=== PATIENT | male | born 1995 | race Caucasian/White ===

== ENCOUNTER 2016-08-07 19:41 | Observation (INO) | payer OTHER ==
[2016-08-07] MEDS ORDERED: fentaNYL 100 MCG/2 ML INJ IVP ONE ×2 (20:02→20:50)
--- NOTE | 2016-08-07 20:05 | EDPHY ---
H & P Stated Complaint: states fall into glass on floor lac to r palm and l elbow Time Seen by Provider: 08/07/16 19:49 HPI/ROS: CHIEF COMPLAINT: Laceration to left elbow and right hand HISTORY OF PRESENT ILLNESS: 20-year-old male with up-to-date tetanus arrives via ambulance, states that he was drinking alcohol fell onto glass and ceramic sustaining laceration to his right thenar eminence and left elbow. Positive foreign body sensation. No paresthesia. No head injury. No proximal distal pain or injury. No chest pain or injury. No dyspnea. Last oral intake was last evening REVIEW OF SYSTEMS: A ten point review of systems was performed and is negative with the exception of the items mentioned in the HPI PAST MEDICAL/SURGICAL HISTORY: no anticoagulant use, no relevant medical/ surgical history SOCIAL HISTORY: positive alcohol use PHYSICAL EXAM 1) GENERAL: Well-developed, well-nourished, alert and oriented. Appears to be in no acute distress. Answering questions appropriately. 2) HEAD: Normocephalic, atraumatic 3) HEENT: Pupils equal, round, reactive to light bilaterally. 4) NECK: Posterior cervical spine is nontender, no stepoff, no effusion. Full range of motion which does not elicit any midline cervical spine pain, no posterior midline tenderness, no step-off. 5) LUNGS: Clear to auscultation bilaterally, no wheezes, no rhonchi, no retractions. No obvious signs of trauma. No chest wall pain. No flaring, no grunting. Moving symmetrically. No crepitus. 6) HEART: Regular rate and rhythm, 7) ABDOMEN: No guarding, no rebound, no focal tenderness, no peritoneal signs, no signs of trauma, no ecchymosis 8) MUSCULOSKELETAL: Left upper extremity: Dorsal elbow 6 cm well-demarcated laceration with visible and palpable fragments of ceramic Right upper extremity: Thenar eminence laceration measuring 4 cm Moving all extremities, no focal areas of tenderness, no obvious trauma. 9) BACK: No midline vertebral tenderness, no fluctuance, no step-off, no obvious trauma, no visual or palpable abnormality. 10) SKIN: laceration left elbow and right hand DIFFERENTIAL DIAGNOSIS: [in no particular include but limited to open fracture, laceration, joint capsule disruption - Personal History Current Tetanus/Diphtheria Vaccine: Yes Current Tetanus Diphtheria and Acellular Pertussis (TDAP): Yes - Medical/Surgical History Hx Asthma: No Hx Chronic Respiratory Disease: No Hx Diabetes: No Hx Cardiac Disease: No Hx Renal Disease: No Hx Cirrhosis: No Hx Alcoholism: No Hx HIV/AIDS: No Hx Splenectomy or Spleen Trauma: No Other PMH: DENIES - Social History Smoking Status: Current every day smoker Constitutional: Initial Vital Signs Temperature (C) 36.9 C 08/07/16 19:45 Heart Rate 101 H 08/07/16 19:45 Respiratory Rate 18 08/07/16 19:45 Blood Pressure 126/89 H 08/07/16 19:45 O2 Sat (%) 96 08/07/16 19:45 O2 Delivery Mode Nasal Cannula O2 (L/minute) 2 Allergies/Adverse Reactions: No Known Allergies Allergy (Unverified 01/25/15 17:15) Home Medications: Medication Instructions Recorded NK [No Known Home Meds] 08/07/16 Medical Decision Making - Diagnostics Imagin. Left Elbow, 3 views History: Laceration after fall onto glass Findings: There is lateral and intra-articular gas. There is a large dorsal laceration with multiple glass fragments seen in and around the olecranon, associated with a deep laceration. No fracture is identified. Impression: 1. The laceration communicates with the elbow joint. 2. Multiple glass fragments are present dorsally, in the region of the olecranon. 2. Right Hand, Three Views History: Pain post trauma. Laceration first metacarpal. Fall onto glass. Findings: No radiopaque glass is identified. There is soft tissue swelling along the palmar aspect of the first metacarpal and distal carpus. No soft tissue gas, fracture or dislocation is identified. Impression: Soft tissue swelling without radiopaque glass. Dictated By: Devin Bhatia MD Images reviewed by myself ED Course/Re-evaluation: 8:55 p.m.: Phone consultation with Dr. Elian Torres regarding the right hand and left elbow laceration which show multiple pieces of glass, laceration which communicates with the elbow joint. On exam this is a complex deep laceration that I think would be best served by OR washout and closure. Dr. Torres is agreeable with this and will take patient to the OR tonight. Discussed case with Dr Haas in ER> - Data Points Laboratory Results: Laboratory Results 08/07/16 20:00 08/07/16 20:00 08/07/16 08/07/16 08/07/16 20:00 20:00 20:00 WBC 10.17 10^3/uL H 10^3/uL (3.80-9.50) RBC 4.94 10^6/uL 10^6/uL (4.40-6.38) Hgb 16.1 g/dL g/dL (13.7-17.5) Hct 45.4 % % (40.0-51.0) MCV 91.9 fL fL (81.5-99.8) MCH 32.6 pg pg (27.9-34.1) MCHC 35.5 g/dL g/dL (32.4-36.7) RDW 12.2 % % (11.5-15.2) Plt Count 244 10^3/uL 10^3/uL (150-400) MPV 11.2 fL fL (8.7-11.7) Neut % (Auto) 62.5 % % (39.3-74.2) Lymph % (Auto) 27.6 % % (15.0-45.0) [place] % (Auto) 7.9 % % (4.5-13.0) Eos % (Auto) 0.9 % % (0.6-7.6) Baso % (Auto) 0.8 % % (0.3-1.7) Nucleat RBC Rel Count 0.0 % % (0.0-0.2) Absolute Neuts (auto) 6.36 10^3/uL 10^3/uL (1.70-6.50) Absolute Lymphs (auto) 2.81 10^3/uL 10^3/uL (1.00-3.00) Absolute Monos (auto) 0.80 10^3/uL 10^3/uL (0.30-0.80) Absolute Eos (auto) 0.09 10^3/uL 10^3/uL (0.03-0.40) Absolute Basos (auto) 0.08 10^3/uL 10^3/uL (0.02-0.10) Absolute Nucleated RBC 0.00 10^3/uL 10^3/uL (0-0.01) Immature Gran % 0.3 % % (0.0-1.1) Immature Gran # 0.03 10^3/uL 10^3/uL (0.00-0.10) PT 13.3 SEC SEC (12.0-15.0) INR 1.02 (0.83-1.16) APTT 26.8 SEC SEC (23.0-38.0) Sodium 142 mEq/L mEq/L (134-144) Potassium 3.8 mEq/L mEq/L (3.5-5.2) Chloride 104 mEq/L mEq/L (97-110) Carbon Dioxide 21 mEq/l L mEq/l (22-31) Anion Gap 17 mEq/L H mEq/L (8-16) BUN 12 mg/dL mg/dL (7-23) Creatinine 1.1 mg/dL mg/dL (0.7-1.3) Estimated GFR > 60 Glucose 102 mg/dL H mg/dL (70-100) Calcium 9.6 mg/dL mg/dL (8.5-10.4) Ethyl Alcohol 90 mg/dL H mg/dL (0-10) Medications Given: Discontinued Medications Fentanyl (Sublimaze) 50 mcg IVP EDNOW ONE Stop: 08/07/16 20:03 Last Admin: 08/07/16 20:15 Dose: 50 mcg Fentanyl (Sublimaze) 100 mcg IVP EDNOW ONE Stop: 08/07/16 20:51 Last Admin: 08/07/16 20:59 Dose: 100 mcg Cefazolin Sodium/Dextrose (Ancef 1 Gm (Premix)) 50 mls @ 200 mls/hr IV EDNOW ONE PRN Reason: Protocol Stop: 08/07/16 20:16 Last Admin: 08/07/16 20:13 Dose: 50 mls Departure - Departure Disposition: To OP Cath/Surgery Clinical Impression: Complex left elbow laceration, Complex right thenar eminence laceration Condition: Fair
[2016-08-07 21:05] LABS: % IMMATURE GRANULYOCYTES 0.3 % (0.0-1.1); ABSOLUTE IMMATURE GRANULOCYTES 0.03 10^3/uL (0.00-0.10); ADD DIFF? NO; ADD MORPH? NO; ADD SCAN? NO; ATYPICAL LYMPHOCYTE FLAG 30 (0-99); FRAGMENT RBC FLAG 0 (0-99); HEMATOCRIT 45.4 % (40.0-51.0); HEMOGLOBIN 16.1 g/dL (13.7-17.5); LEFT SHIFT FLG 0 (0-99); LIPEMIA HEMOLYSIS FLAG 90 (0-99); MEAN CELL HEMOGLOBIN 32.6 pg (27.9-34.1); MEAN CELL HEMOGLOBIN CONCENTR. 35.5 g/dL (32.4-36.7); MEAN CELL VOLUME 91.9 fL (81.5-99.8); MEAN PLATELET VOLUME 11.2 fL (8.7-11.7); PLATELET CLUMPS FLAG 20 (0-99); PLATELET COUNT 244 10^3/uL (150-400); RED BLOOD CELL COUNT 4.94 10^6/uL (4.40-6.38); RED CELL DISTRIBUTION WIDTH 12.2 % (11.5-15.2)
[2016-08-07 21:10] LABS: INR 1.02 (0.83-1.16); PROTIME(PATIENT) 13.3 SEC (12.0-15.0)
[2016-08-07 21:11] LABS: APTT 26.8 SEC (23.0-38.0)
[2016-08-07 21:18] LABS: ANION GAP 17 mEq/L (8-16); CALCIUM 9.6 mg/dL (8.5-10.4); CARBON DIOXIDE 21 mEq/l (22-31); CHLORIDE 104 mEq/L (97-110); CREATININE 1.1 mg/dL (0.7-1.3); ETHANOL SERUM 90 mg/dL (0-10); GLOMERULAR FILTRATION RATE > 60; GLUCOSE 102 mg/dL (70-100); POTASSIUM 3.8 mEq/L (3.5-5.2); SODIUM 142 mEq/L (134-144)
--- NOTE | 2016-08-07 21:41 | SOAPPROG ---
TINY Progress Note Assessment/Plan: Assessment: 20 year old male who presents to the ER after falling onto glass. He sustained left elbow laceration with communication to the joint as well as a laceration of the palmar aspect of the right hand. PE: NAD A&O x3 LUE: Dorsal elbow 6 cm well-demarcated laceration RUE:Thenar eminence laceration measuring 4 cm Plan: Risks, benefits, and alternatives to operative vs nonoperative management were discussed with patient. Patient would like to proceed with irrigation and debridement of the left elbow and right hand. Patient will be taken to the OR for irrigation and debridement of the left elbow and right hand. 08/07/16 21:34 Objective: Vital Signs Temp Pulse Resp BP Pulse Ox 36.9 C 84 14 112/77 95 08/07/16 19:45 08/07/16 21:15 08/07/16 21:15 08/07/16 21:15 08/07/16 21:15 PT 13.3 SEC (12.0-15.0) 08/07/16 20:00 INR 1.02 (0.83-1.16) 08/07/16 20:00 - Pending Discharge Pending Discharge Within 24 Hours: Yes Pending Discharge Within 48 Hours: Yes Pending Discharge Date: 08/09/16 Pending Discharge Time: 11:00 ICD10 Worksheet Patient Problems: Problems Problem Status Onset Elbow laceration Acute Elbow laceration Acute - ICD10 Problem Qualifiers (1) Elbow laceration Qualifiers: Encounter type: E Laterality: L (2) Elbow laceration Qualifiers: Encounter type: E Laterality: L
[2016-08-07] MEDS ORDERED: CEFAZOLIN 2 GM/DEXTROSE/100 ML BAG IV ONE (21:49)
[2016-08-07] MEDS ORDERED: LIDOCAINE 2% JELLY 5 ML TUBE ONE (21:56)
[2016-08-07] MEDS ORDERED: ONDANSETRON 4 MG/2 ML VIAL ONE (21:56)
[2016-08-07] MEDS ORDERED: fentaNYL 250 MCG/5 ML INJ ONE (21:56)
[2016-08-07] MEDS ORDERED: DEXAMETHASONE 4 MG/ML VIAL ONE ×2 (21:56)
[2016-08-07] MEDS ORDERED: PROPOFOL 200 MG/20 ML VIAL ONE ×2 (21:56→22:05)
--- NOTE | 2016-08-08 00:20 | SOAPPROG ---
SOAP Progress Note Assessment/Plan: Assessment: 20 year old male who presents to the ER after falling onto glass. He sustained left elbow laceration with communication to the joint as well as a laceration of the palmar aspect of the right hand. He is POD#0 s/p left elbow irrigation and debridement, right hand irrigation and debridement. PE: NAD A&O x3 LUE: Dressing C/D/I RUE:Dressing C/D/I Plan: - 2g IV ancef q8h for 2 doses. First dose to be given at 0400 on 08/08. - WBAT RUE. WBAT LUE - Keep dressings clean and dry - Patient may be discharged tomorrow after 2nd dose of Ancef. Pt has prescriptions for pain medication and antibiotics in his chart. Pt is to follow up in our office in two weeks for repeat evaluation. 08/07/16 21:34 08/08/16 00:16 Objective: Vital Signs Temp Pulse Resp BP Pulse Ox 36.9 C 84 14 112/77 95 08/07/16 19:45 08/07/16 21:15 08/07/16 21:15 08/07/16 21:15 08/07/16 21:15 PT 13.3 SEC (12.0-15.0) 08/07/16 20:00 INR 1.02 (0.83-1.16) 08/07/16 20:00 ICD10 Worksheet Patient Problems: Problems Problem Status Onset Elbow laceration Acute - ICD10 Problem Qualifiers (1) Elbow laceration Qualifiers: Encounter type: E Laterality: L
[2016-08-08] MEDS ORDERED: ONDANSETRON 4 MG/2 ML VIAL IVP PRN (00:23)
[2016-08-08] MEDS ORDERED: fentaNYL 100 MCG/2 ML INJ ONE (00:25)
[2016-08-08] MEDS ORDERED: HYDROmorphONE/DILAUDID 1 MG/ML SYR ONE (00:26)
[2016-08-08] MEDS ORDERED: D5W 1/2 NS W/ 20 KCl/L 1,000 ML IV SCH (00:30)
--- NOTE | 2016-08-08 00:35 | POSTOPPROG ---
Post Op Note Date of Operation: 08/08/16 Surgeon: Elian Torres Master In Chancery: Lili Cabrera PA-C Anesthesiologist: Sandra Pre-op Diagnosis: left elbow laceration, right hand laceration Post-op Diagnosis: left elbow laceration, right hand laceration Procedure: Irrigation and debridement left elbow, irrigation and debridement right jones Inf/Abcess present in the surg proc area at time of surgery?: No EBL: Minimal
[2016-08-08] MEDS ORDERED: HYDROmorphONE/DILAUDID 1 MG/ML SYR IVP PRN (01:26)
[2016-08-08] MEDS: OXYCODONE/APAP 5/325 TAB PO PRN ×4 (01:38→16:42)
--- NOTE | 2016-08-08 01:58 | GCON ---
[f rep st] CONSULTATION Patient Name: KELBY NIETO N-Number: [id number] Date of : [birth year] Patient Status: Observation Attending Doctor: Elian Torres MD Date of service: 08/07/16 CPT codes: CPT code 66662 ER visit requiring admission or initial inpatient visit, level four Modifier 57 Decision for surgery CHIEF COMPLAINT: Left elbow laceration, right hand laceration HISTORY OF PRESENT ILLNESS: This is a very pleasant 20 year old male with a significant history for left posterior elbow laceration with evidence of intra-articular penetration and a right thenar eminence laceration after a fall through a window onto ceramic material earlier today. He denies head injury or other injury. PROBLEM LIST: Left posterior elbow laceration, right thenar eminence laceration PAST MEDICAL HISTORY: No pertinent medical history SURGERIES: No pertinent surgical history SOCIAL HISTORY: He was drinking at the time of the injury FAMILY HISTORY: No pertinent family history CURRENT MEDICATIONS: No current medications ALLERGIES: NKDA REVIEW OF SYSTEMS Constitutional: No unexpected weight loss, weight gain, fevers, chills, or fatigue. Eyes: No blurred or double vision, no eye pain, redness or swelling. ENT: No headaches, difficulty swallowing, nose bleeds, tinnitus, or earaches. Cardiovascular: No chest pain, palpitations, fainting or murmurs. Respiratory: No shortness of breath, wheezing, cough, of difficulty breathing. GI: No reflux, no nausea or vomiting, no constipation, diarrhea, or bloody stools. Genitourinary: No urinary frequency or urgency, no pain with urination. Skin: Laceration of posterior left elbow with foreign body present. Laceration of right thenar eminence. Neurologic: No unsteadiness of gait, no dizziness, tremors, or seizures. Psychiatric: No nervousness, anxiety, depression, or hallucinations. Hematologic: No increased bleeding or easy bruising. Endocrine: No excessive thirst or urination and no heat or cold intolerances. Allergic: No reactions to food or environment. Musculoskeletal: See history of present illness. PHYSICAL EXAM General: No apparent distress. Orientation: Alert and oriented times three Mood and affect: Calm, appropriate. Gait and station: Normal gait and station. Skin: Warm, dry. Lymph: Non tender neck, axillary and inguinal nodes. Chest: Equal expansion, no pain with deep breaths, speaks in coherent sentences. Cardiovascular: Regular pulse. Abdomen: Soft, non-tender, no masses, no palpable hernias. Bilateral elbow examination Inspection/palpation: Right: Normal resting posture. Left: Posterior laceration with gross contamination Elbow ROM Elbow Extension-Flexion: 0-150 / 30-110 / 0-150 Forearm Supination: 0-80 / 0-50 / 0-80 Pronation: 0-80 / 0-60 / 0-80 Elbow strength Elbow Flexors: 5 Triceps : Forearm Supinator: PT and PQ: Sensory MABC : + / + / + LABC: + / + / + Bilateral hand and wrist examination Inspection/palpation: Right: Right thenar eminence laceration with gross contamination Left: Normal resting posture. Wrist ROM Wrist Flexion: 90 / 90 / 90 Extension: 90 / 90 / 90 Wrist/hand strength (R / L / Normal) ECRL/ECRB (C6): FCU/ECU: EDC: EPL (PIN): FPL (AIN): FDS (C8): FDP (C8): FDP-I (C8 / AIN): DI (C8-T1): PI (C8-T1): Wrist/hand sensory Median: + / + / + Palmar cutaneous: + / + / + Radial: + / + / + SBRN: + / + / + Ulnar: + / + / + DSBUN: + / + / + Bilateral thumb examination Inspection/palpation: Right: Laceration overlying the thenar eminence with gross contamination Left: Soft, no tenderness to palpation. Thumb ROM CMC Radial abduction: 60 / 80 / 80 Palmar abduction: 60 / 80 / 80 MCP: 0-40 / 0-60 / 0-60 IP: 0-50 / 0-50 / 0-50 Thumb motors FPL: EPL: Thumb sensory RDN: + / + / + UDN: + / + / + Medical decision making Data Imaging study: Left elbow, 3 views Action: interpreted Interpretation / pertinent findings: Evidence of lateral and intra-articular gas. Multiple radio-opaque foreign bodies present posteriorly Imaging study: Right hand, 3 views Action: interpreted Interpretation/pertinent findings: Soft tissue swelling with no evidence of fracture or dislocation Diagnoses New diagnosis: Left elbow laceration with possible communication with the joint Work-up planned: yes: see assessment and plan New diagnosis: Right thenar eminence laceration Work-up planned: yes: see assessment and plan Assessment and plan This is a very pleasant 20 year old male with a deep left elbow posterior laceration with gross contamination and possible communication with the joint and a right thenar eminence laceration with gross contamination. -As such I have discussed with the patient the risks, benefits, alternatives, and complications associated with both non-operative (specifically, observation , antibiotics, wound healing by secondary intention) and operative (specifically , left elbow laceration exploration with irrigation and debridement, removal of foreign bodies and repair of any injured structures as well as right hand laceration exploration with irrigation and debridement, removal of foreign bodies and repair of any injured structures ) forms of treatment -The patient fully understands the risks, benefits, alternatives, and complications of both forms of treatment and the patient wishes to proceed with operative intervention as outlined above. -He has signed the informed consent form for surgery and surgery will be performed as soon as the OR is available Time I have spent 80 minutes of [id number] time with the patient during this visit. Over fifty percent of this time was spent counseling the patient on the risks, benefits, alternatives, and complications of both non-operative and operative forms of treatment as outlined above. /[id number]/MODL MTDD
--- NOTE | 2016-08-08 02:34 | GOP ---
[f rep st] OPERATIVE REPORT PATIENT: KELBY NIETO DATE OF SERVICE: 08/07/16 PATIENT DATE OF : 1995 SURGEON: Elian Torres M.D. BURRER OPERATOR: MAYUR FlorezJerri Olea assistance was medically necessary for patient positioning and the retraction of vital structures. ANESTHESIA: General PRE-OPERATIVE DIAGNOSES: Left upper extremity diagnoses Left elbow laceration with foreign body (ICD-10 code S51.022A - left elbow laceration with foreign body) Right upper extremity diagnoses Right hand thenar eminence laceration with foreign body (ICD-10 code right hand laceration with foreign body) POST-OPERATIVE DIAGNOSES: Left upper extremity diagnoses Left elbow laceration with foreign body (ICD-10 code S51.022A - left elbow laceration with foreign body) Left elbow open olecranon fracture (ICD-10 code S52.032B displaced fracture of the olecranon process with intra-articular extension, initial encounter for open fracture) Left elbow open capitellum fracture (ICD-10 code S42.402B left distal humerus fracture, initial encounter for open fracture) Left elbow extensor carpi radialis longus laceration (ICD-10 code S56.409A left extensor laceration at forearm level) Left elbow extensor carpi radialis brevis laceration (ICD-10 code S56.409A left extensor laceration at forearm level) Left elbow extensor digitorum communis laceration (ICD-10 code S56.409A left extensor laceration at forearm level) Left elbow extensor carpi ulnaris laceration (ICD-10 code S56.409A left extensor laceration at forearm level) Left elbow anconeus laceration (ICD-10 code S56.409A left extensor laceration at forearm level) Right upper extremity diagnoses Right hand thenar eminence laceration with foreign body (ICD-10 code right hand laceration with foreign body) Right thumb abductor pollicis brevis laceration (ICD-10 code S66.402A right thumb intrinsic muscle laceration) Right thumb flexor pollicis brevis, superficial head laceration (ICD-10 code S66.402A right thumb intrinsic muscle laceration) Right thumb flexor pollicis brevis, deep head laceration (ICD-10 code S66.402A right thumb intrinsic muscle laceration) Right hand transverse carpal ligament laceration (ICD-10 code M24.241 right hand transverse carpal ligament laceration) Right open trapezium fracture (ICD-10 code S62.171B right open trapezium fracture) OPERATIVE PROCEDURES: Left upper extremity operative procedures CPT code 53631 Left elbow arthrotomy with removal of foreign bodies CPT code 87472 Left elbow olecranon process debridement CPT code 96718 Left elbow capitellum debridement CPT code 31846 Open treatment of an olecranon fracture CPT code 33664 Open treatment of a humeral condylar fracture, lateral CPT code 71125 Left forearm ECRL repair CPT code 05879 Left forearm ECRB repair CPT code 25264 Left forearm EDC repair CPT code 70056 Left forearm ECU repair CPT code 24293 Left forearm anconeus repair CPT code 59349 Left elbow complex laceration repair, 2.6cm to 7.5cm CPT code 06069 Left elbow complex laceration repair, each additional 5cm CPT code 97403 Fluoroscopy by surgeon, up to one hour Right upper extremity operative procedures CPT code 88880 Right thumb trapezio-metacarpal joint arthotomy with removal of foreign bodies CPT code 10435 Right wrist trapezium debridement CPT code 41433 Open treatment of a right wrist trapezial fracture CPT code 21316 Right thumb trapezio-metacarpal joint volar collateral ligament repair CPT code 11301 Right wrist transverse carpal ligament repair CPT code 96609 Right thumb abductor pollicis brevis repair CPT code 98185 Right thumb flexor pollicis brevis superficial head repair CPT code 18829 Right thumb flexor pollicis brevis deep head repair CPT code 16597 Right thumb laceration repair, 2.6cm to 7.5cm CPT code 54503 Fluoroscopy by surgeon, up to one hour EBL: Left upper extremity: 2cc Right upper extremity: 1cc COMPLICATIONS: None TOURNIQUET TIME: Left upper extremity: 47 minutes at 250 mmHg Right upper extremity: 37 minutes at 250 mm Hg IMPLANTS: None BRIEF CLINICAL NOTE: This is a very pleasant 20 year old male with a significant history for falling through a piece of glass earlier today sustaining deep lacerations to his left postero-radial elbow and right thenar eminence. Left elbow radiographs demonstrated air within the joint space. As such, I discussed the risks, benefits, alternatives, and complications associated with both non-operative (specifically, observation, antibiotics, wound healing by secondary intention) and operative (specifically, left elbow laceration exploration with removal of foreign bodies, irrigation and debridement and repair of any injured structures and right hand laceration exploration with removal of foreign bodies, irrigation and debridement and repair of any injured structures) forms of treatment. The patient fully understood the risks, benefits, alternatives, and complications associated with both forms of treatment and wishes to proceed with operative intervention as outlined above. The patient has signed the informed consent form for surgery. OPERATIVE NOTE: On the day of surgery, all of the patients questions were answered. The patient was then transferred from the pre-operative area into the operating room and a formal, Time-Out procedure was performed. The patient was identified by name, medical record number, social security number, and date of . In addition, the patients left upper extremity and right upper extremity were both identified as the correct extremities for surgery with the patients left elbow and right hand being identified as the correct portions of those extremities for surgery. The anesthesia team administered pre -operative antibiotics for prophylaxis. The left brachium and the right forearm were then padded with webril and tourniquets were applied. The patient was then positioned laterally with his left side up. The left and right upper extremities were then prepped and draped in the normal sterile fashion. Left upper extremity surgery A sterile marking pen was then utilized to henrik out proximal and distal extensions to the patients pre-existing laceration overlying the postero- radial elbow. An Esmarch was then utilized to exsanguinate the left upper extremity and the tourniquet was inflated to 250mmHg. A number 15 blade was then utilized to extend the laceration proximally and distally. Skin flaps were elevated the tied back into place with 3-0 nylon sutures. A multitude of foreign bodies were removed from the wound. PA, lateral, and oblique C-arm images of the left elbow demonstrated complete removal of all radio-opaque foreign bodies. The patient was found to have the following injuries: olecranon process impaction fracture along the radial ulno-humeral joint line with an associated traumatic arthrotomy, a posterior capitellum osteo- cartilaginous shear fracture with an associated traumatic arthrotomy, partial lacerations of ECRL, ECRB, EDC, ECU, and anconeus. The entire wound was then sharply surgically debrided including skin, fascia, muscle, and bone and then copiously irrigated with sterile normal saline. The ulnohumeral joint and the radio-capitellar joints were also copiously irrigated with sterile normal saline. The olecranon process fracture was debrided to remove all loose bony fragments and the ulno-humeral joint arthrotomy was re-approximated with 2-0 prolene sutures. The posterior capitellar osteocarilaginous shear fracture was repaired to the surrounding periosteum with several 3-0 vicryl sutures. The radio-capitellar arthrotomy was repaired with 2-0 prolene sutures. The ECRL, ECRB, EDM, ECU, and anconeus lacerations were repaired with 2-0 prolene sutures. The skin lacerations and incisions were re-approximated with 3-0 nylon sutures. The skin was then cleaned with sterile normal saline and dried. Betadine soaked gauze was then applied to the wound followed by a dry sterile dressing, sterile webril, and a compressive chio wrap. Once the dressing was completely in place, the tourniquet was deflated. After complete deflation of the tourniquet, all fingers and the thumb demonstrated brisk capillary refill. Attention was then turned to the right hand. Right upper extremity surgery A sterile marking pen was utilized to henrik out proximal and distal extensions to the patients pre-existing thenar eminence laceration. An Esmarch was then utilized to exsanguinate the right upper extremity and the tourniquet was inflated to 250mmHg. A number 15 blade was then utilized to extend the pre-existing laceration proximally and distally. Skin flaps were elevated and tied back into place with 4-0 nylon sutures. A multitude of foreign bodies were removed from the wound. PA, lateral, and oblique C-arm images of the right hand demonstrated complete removal of all radio-opaque foreign bodies. The patient was found to have the following injuries: right wrist trapezium impaction fracture with an associated trapezio-metacarpal arthrotomy with disruption of the volar trapezio- metacarpal ligament, partial laceration of the transverse carpal ligament, lacerations of the deep and superficial heads of flexor pollicis brevis, and a laceration of the abductor pollicis brevis. The entire wound was then sharply surgically debrided including skin, fascia, muscle, and bone and then copiously irrigated with sterile normal saline. The trapezio-metacarpal joint was also copiously irrigated with sterile normal saline. The trapezial fracture were debrided of all loose bony fragments back to a stable rim of bone. The volar trapezio-metacarpal collateral ligament was repaired with 2-0 vicryl sutures. The transverse carpal ligament was repaired with 2-0 vicryl sutures. The deep and superficial heads of the flexor pollicis brevis were repaired with 3-0 vicryl sutures. The abductor pollicis brevis was repaired with 3-0 vicryl sutures. The laceration and incisions were re-approximated with 4-0 nylon sutures. The skin was then cleaned with sterile normal saline and dried. Betadine soaked gauze was then applied to the wound followed by a dry sterile dressing, sterile webril, and a compressive coban wrap. Once the dressing was completely in place, the tourniquet was deflated. After complete deflation of the tourniquet, all fingers and the thumb demonstrated brisk capillary refill. The patient was then reversed from anesthesia and transferred from the operating room table onto the post-operative gurney and transferred from the operating room to the PACU in stable condition. POST-OPERATIVE PLAN: The patient will be admitted for overnight observation and will receive two additional doses of intravenous antibiotics during his stay. He will keep his right and left upper extremities clean and dry and leave the original bandages in placed until his first follow-up as an outpatient in 1 week. /[id number]/MODL MTDD
[2016-08-08 13:21] VITALS: BP 143/78; PULSE 59; RESP 18; TEMP 97.8; O2SAT 95
== END 2016-08-08 18:26 | disposition home or self-care (01) ==
LOC: EDUNIT# → F1N 08-08 00:53
PROVIDERS: ADMIT Orthopaedic Surgery Hand Surgery; ATTEND Orthopaedic Surgery Hand Surgery
PROC: 0LQ60ZZ Repair Left Lower Arm and Wrist Tendon, Open Approach (ICD-10-PCS; principal; 2016-08-07 21:56)
PROC: 0PSD04Z Reposition Left Humeral Head with Internal Fixation Device, Open Approach (ICD-10-PCS; principal; 2016-08-07 21:56)
PROC: 0LX50ZZ Transfer Right Lower Arm and Wrist Tendon, Open Approach (ICD-10-PCS; principal; 2016-08-07 21:56)
PROC: 0KQC0ZZ Repair Right Hand Muscle, Open Approach (ICD-10-PCS; principal; 2016-08-07 21:56)
PROC: 0PS Upper Bones, Reposition (ICD-10-PCS; principal; 2016-08-07 21:56)
PROC: 0PSL04Z Reposition Left Ulna with Internal Fixation Device, Open Approach (ICD-10-PCS; principal; 2016-08-07 21:56)
DX: S52.032B Displaced fracture of olecranon process with intraarticular extension of left ulna, initial encounter for open fracture type I or II (principal); S42.402B Unspecified fracture of lower end of left humerus, initial encounter for open fracture; S56.40 Unspecified injury of extensor muscle, fascia and tendon of other and unspecified finger at forearm level; S61.421A Laceration with foreign body of right hand, initial encounter; S66.40 Unspecified injury of intrinsic muscle, fascia and tendon of thumb at wrist and hand level; S62.171 Displaced fracture of trapezium [larger multangular], right wrist; W18.02XA Striking against glass with subsequent fall, initial encounter; W45.8XXA Other foreign body or object entering through skin, initial encounter; J06.9 Acute upper respiratory infection, unspecified; F17.210 Nicotine dependence, cigarettes, uncomplicated
CPT/HCPCS: 24579; 24685; 25270; 25320; 25645; 26540; 26591; 73080; 73130; 97165; G0378; 96365; G0480; J0690; J1100; J1170; J2405; J2704; J3010

== ENCOUNTER 2016-08-24 08:32 | Emergency (ER) | payer OTHER ==
[2016-08-24 08:43] VITALS: TEMP 98.2
--- NOTE | 2016-08-24 08:55 | EDPHY ---
H & P Stated Complaint: concerned about withdrawl from ETOH and percocet Time Seen by Provider: 08/24/16 08:44 HPI/ROS: CHIEF COMPLAINT: Narcotic withdrawal, alcohol intoxication HISTORY OF PRESENT ILLNESS: The patient presents to the ED with complaints of narcotic withdrawal and alcohol intoxication. The patient has been using Percocet up to 12 tablets daily for the past several weeks. The patient stopped taking the medication 2 days ago after he ran out. The patient has been using alcohol to alleviate his symptoms of withdrawal including restlessness and agitation. The patient denies suicidal or homicidal ideation. The patient does have a history of using benzodiazepines in the past. The patient reports he has been grieving that medication however has not taking any benzodiazepines. REVIEW OF SYSTEMS: A comprehensive 10 point review of systems is otherwise negative aside from elements mentioned in the history of present illness. Source: Patient Exam Limitations: No limitations - Personal History Current Tetanus Diphtheria and Acellular Pertussis (TDAP): Yes - Medical/Surgical History Hx Asthma: No Hx Chronic Respiratory Disease: No Hx Diabetes: No Hx Cardiac Disease: No Hx Renal Disease: No Hx Cirrhosis: No Hx Alcoholism: No Hx HIV/AIDS: No Hx Splenectomy or Spleen Trauma: No Other PMH: benzo abuse - Social History Smoking Status: Current every day smoker - Physical Exam Exam: General Appearance: Intoxicated, no acute distress Eyes: Pupils equal and round no pallor or injection ENT, Mouth: Mucous membranes moist Respiratory: There are no retractions, lungs are clear to auscultation Cardiovascular: Regular rate and rhythm Gastrointestinal: Abdomen is soft and nontender, no masses, bowel sounds normal Neurological: A&O, normal motor function, normal sensory exam, normal cranial nerves Skin: Warm and dry, no rashes Musculoskeletal: Neck is supple nontender Extremities: Dressings noted to the bilateral upper extremities Psychiatric: Intoxicated, mild agitation Constitutional: Initial Vital Signs Temperature (C) 36.8 C 08/24/16 08:32 Heart Rate 122 H 08/24/16 08:32 Respiratory Rate 20 08/24/16 08:32 Blood Pressure 104/87 H 08/24/16 08:32 O2 Sat (%) 97 08/24/16 08:32 O2 Delivery Mode Room Air Allergies/Adverse Reactions: No Known Allergies Allergy (Unverified 01/25/15 17:15) Home Medications: Medication Instructions Recorded Cephalexin [Keflex (*)] 500 mg PO QID #20 cap 08/08/16 Oxycodone HCl 5 mg PO Q4HRS #60 capsule 08/08/16 Medical Decision Making ED Course/Re-evaluation: The patient presents to the ED after he has developed symptoms of mild narcotic withdrawal he has been treating with alcohol. The patient states he is interested in not being on narcotic medications and would like to go to detox. The patient is comfortable going [facility] where they do have medical treatment protocols available for both narcotic withdrawal and alcohol withdrawal. The patient denies suicidal or homicidal ideation. The patient is currently under the care of Dr. Elian Torres where he is recovering from fairly extensive lacerations noted to the upper extremities. The patient will be discharged from the emergency department with the plan to follow up at the [facility]. He will be taken there today via taxi cab as he has been drinking. The patient is clinically sober and is ambulatory in the ED. Differential Diagnosis: Differential diagnosis considered includes alcohol withdrawal, alcohol intoxication, narcotic withdrawal Departure - Departure Disposition: Home, Routine, Self-Care Clinical Impression: Alcohol intoxication, Narcotic withdrawal Condition: Good Instructions: Alcohol Intoxication (ED), Opioid Withdrawal (ED) Additional Instructions: 1. Please go to the [facility] where you can get assistance with alcohol dependence and narcotic withdrawal. Referrals: [facility] [Outside] - As per Instructions
[2016-08-24 10:08] VITALS: BP 137/113; PULSE 101; RESP 18; O2SAT 92
== END 2016-08-24 10:21 | disposition home or self-care (01) ==
LOC: EDUNIT#
DX: F10.129 Alcohol abuse with intoxication, unspecified (principal); F11.23 Opioid dependence with withdrawal; F17.200 Nicotine dependence, unspecified, uncomplicated